=== PATIENT | male | born 1975 | race Two or more races ===

== ENCOUNTER 2018-05-14 04:21 | Emergency (ER) | payer OTHER ==
[~2018-05-14] VITALS: Ht 175.3 cm; Wt 127.0 kg
[2018-05-14] MEDS ORDERED: cefTRIAXone SOD 1,000 MG VL IM ONE (07:30)
[2018-05-14 07:55] VITALS: BP 145/88
== END 2018-05-14 08:04 | disposition home or self-care (01) ==
LOC: ER 04:21
DX: A60.01 Herpesviral infection of penis (principal); N50.89 Other specified disorders of the male genital organs; A64 Unspecified sexually transmitted disease; F17.210 Nicotine dependence, cigarettes, uncomplicated
CPT/HCPCS: 81002; 99283; J0696